=== PATIENT | female | born 1995 | race Caucasian/White ===

== ENCOUNTER 2020-12-23 20:32 | Emergency (ER) | payer MEDICAID ==
[~2020-12-23] VITALS: Ht 157.5 cm; Wt 59.9 kg
[2020-12-23 20:37] VITALS: BP 104/68
--- NOTE | 2020-12-23 21:44 | NUR ---
Pt ambulated to ER bed 4 w/ steady gait.
[2020-12-23] MEDS ORDERED: KETOROLAC 30 MG/ML VIAL IVP ONE (21:50)
[2020-12-23] MEDS ORDERED: NACL 0.9% 1,000 ML IV ONE (21:50)
[2020-12-23] MEDS ORDERED: PANTOPRAZOLE 40 MG INJ VIAL IVP ONE (21:50)
[2020-12-23] MEDS ORDERED: ONDANSETRON 4 MG/2 ML VIAL IVP ONE (21:50)
--- NOTE | 2020-12-23 21:55 | NUR ---
LAB IN ROOM DRAWING BLOOD.
--- NOTE | 2020-12-23 21:58 | NUR ---
LAB AT BEDSIDE
--- NOTE | 2020-12-23 22:00 | NUR ---
ekg performed at bedside. ekg reads sinus rhythm @ 71
--- NOTE | 2020-12-23 22:00 | NUR ---
EMT IN ROOM FOR EKG.
[2020-12-23 22:05] LABS: BASOPHILS # (AUTO) 0.1 K/uL (0.00-0.22); BASOPHILS % (AUTO) 0.6 % (0.0-2.0); EOSINOPHILS # (AUTO) 0.3 K/uL (0-0.4); EOSINOPHILS % (AUTO) 2.8 % (0.0-4.0); HEMATOCRIT 43.1 % (36-48); HEMOGLOBIN 14.6 g/dL (12.0-16.0); LYMPHOCYTES # (AUTO) 2.3 K/uL (2.5-16.5); LYMPHOCYTES % (AUTO) 23.7 % (20.5-51.1); MEAN CORPUSCULAR HEMOGLOBIN 30 pg (27-31); MEAN CORPUSCULAR HGB CONC 34 g/dL (33-37); MEAN CORPUSCULAR VOLUME 88.7 fL (80-94); MONOCYTES # (AUTO) 0.5 K/uL (0.8-1.0); MONOCYTES % (AUTO) 5.1 % (1.7-9.3); NEUTROPHILS # (AUTO) 6.6 K/uL (1.8-7.7); NEUTROPHILS % (AUTO) 67.8 % (42.2-75.2); PLATELET COUNT (AUTO) 377 K/uL (140-450); RED BLOOD CELL COUNT(AUTO) 4.86 MIL/uL (4.20-5.40); RED CELL DISTRIBUTION WIDTH 13.3 % (11.6-13.7); WHITE BLOOD COUNT (AUTO) 9.8 K/uL (4.8-10.8)
[2020-12-23 22:21] LABS: ALBUMIN 4.3 g/dL (3.4-5.0); ANION GAP 13.9 (8-16); ASPARTATE AMINOTRANSFERASE 26 U/L (15-37); CARBON DIOXIDE 26.2 mmol/L (21-32); CHLORIDE 102 mmol/L (98-107); CREATININE 0.9 mg/dL (0.6-1.3); GFR ARICAN-AMERICAN 98 mL/min (>90); GLUCOSE 108 mg/dL (74-106); LIPASE 106 U/L (73-393); POTASSIUM 4.1 mmol/L (3.5-5.1); SODIUM SERUM 138 mmol/L (136-145); TOTAL BILIRUBIN 0.2 mg/dL (0.0-1.0); UREA NITROGEN, BLOOD 13 mg/dL (7-18)
--- NOTE | 2020-12-23 22:44 | NUR ---
IMAGING AT BEDSIDE, TAKING PT TO RADIOLOGY.
--- NOTE | 2020-12-23 23:00 | NUR ---
25 Y/O F BIB SELF FROM HOME FOR LOWER ABD PAIN. PT STATES THAT SHE WAS AT [facility] FOR HYSTEROSALPINGOGRAPHY ON 12/21. PT STATES 6/10 PAIN, RADIATES TO LOWER LEFT BACK. DENIES N/V/D. PT TOOK TYLENOL FOR PAIN. NO PMH. NKA. NO BURNING DURING URINATION, NO BLOOD IN URINE. PT UNABLE TO GIVE URINE AT THIS TIME.
[2020-12-23 23:34] LABS: APPEARANCE,URINE CLEAR (CLEAR); BILIRUBIN,URINE NEGATIVE (NEGATIVE); BLOOD, URINE 2+ (NEGATIVE); COLOR,URINE YELLOW (YELLOW); LEUKOCYTE ESTERASE ,URINE TRACE (NEGATIVE); NITRITE, URINE NEGATIVE (NEGATIVE); UGLUCOSE NEGATIVE (NEGATIVE)
[2020-12-23 23:46] LABS: RBC,URINE 0-5 /HPF (0-5)
[2020-12-23 23:51] LABS: BARBITURATE, URINE NEGATIVE ng/ml (NEG <=200); BENZODIAZEPINE, URINE NEGATIVE ng/mL (NEG <=200); CANNABINOID, URINE NEGATIVE ng/mL (NEG <=50); COCAINE, URINE NEGATIVE ng/mL (NEG <=300); OPIATE, URINE NEGATIVE ng/mL (NEG <=2000); PHENCYCLIDINE SCREEN,URINE NEGATIVE ng/mL (NEG <=25)
--- NOTE | 2020-12-24 00:05 | NUR ---
Patient discharged with v/s stable. Written and verbal after care instructions given and explained. Patient verbalized understanding. Ambulatory with steady gait. All questions addressed prior to discharge. Advised to follow up with PMD.
[2020-12-24 00:06] VITALS: BP 104/68
[2020-12-24] MEDS ORDERED: CEPH500C16 PO (08:22)
== END 2020-12-24 00:05 | disposition home or self-care (01) ==
LOC: MED 20:32
DX: N39.0 Urinary tract infection, site not specified (principal); R42 Dizziness and giddiness; R11.2 Nausea with vomiting, unspecified
CPT/HCPCS: 36415; 74176; 80053; 80305; 81001; 83690; 84702; 85025; 87086; 93005; 96361; 96374; 96375; 99285; C9113; G0482; J1885; J2405

== ENCOUNTER 2021-12-14 02:20 | Observation (INO) | payer MEDICAID ==
[~2021-12-14] VITALS: Ht 152.4 cm; Wt 64.4 kg
[~2021-12-14 02:20] MED LIST: CEPH500C16 PO
[2021-12-14] MEDS ORDERED: PREN-556 PO (03:16)
[2021-12-14] MEDS ORDERED: ACET-2619 PO (04:36)
[2021-12-14] MEDS ORDERED: CIPR10SU OT (04:36)
== END 2021-12-14 03:35 | disposition home or self-care (01) ==
LOC: MFCC 02:20
PROVIDERS: ADMIT Obstetrics & Gynecology; ATTEND Obstetrics & Gynecology
DX: O26.892 Other specified pregnancy related conditions, second trimester (principal); R10.9 Unspecified abdominal pain; H92.02 Otalgia, left ear; L29.9 Pruritus, unspecified; O99.612 Diseases of the digestive system complicating pregnancy, second trimester; K62.89 Other specified diseases of anus and rectum; Z3A.27 27 weeks gestation of pregnancy
CPT/HCPCS: G0378; G0379

== ENCOUNTER 2021-12-14 03:42 | Emergency (ER) | payer MEDICAID ==
[~2021-12-14] VITALS: Ht 149.9 cm; Wt 63.5 kg
[~2021-12-14 03:42] MED LIST changes: +PREN-556 PO
[2021-12-14 03:50] VITALS: BP 121/60
--- NOTE | 2021-12-14 03:54 | NUR ---
Dr. Bermudez examining patient.
[2021-12-14] MEDS ORDERED: CARBAMIDE PEROXIDE 6.5% OT 15 ML BTL OT ONE (04:00)
[2021-12-14] MEDS ORDERED: ACETAMINOPHEN 325 MG TAB PO ONE (04:00)
--- NOTE | 2021-12-14 04:00 | NUR ---
PT TAKEN TO BED 9
[2021-12-14] MEDS ORDERED: CIPR10SU OT (04:36)
[2021-12-14] MEDS ORDERED: ACET-2619 PO (04:36)
[2021-12-14 05:07] VITALS: BP 121/60
--- NOTE | 2021-12-14 05:07 | NUR ---
PATIENT CLEARED FOR DISHCARGE AT THIS TIME WITH NO COMPLAINTS OR CONERNS AT THIS TIME FOLLOWING DIHSCARGE TEACHING. RX SENT TO [facility] AND ADVISED TO FOLLOW UP WITH PCP
== END 2021-12-14 05:07 | disposition home or self-care (01) ==
LOC: MED 03:42
DX: O26.892 Other specified pregnancy related conditions, second trimester (principal); H60.93 Unspecified otitis externa, bilateral; J02.9 Acute pharyngitis, unspecified; Z3A.26 26 weeks gestation of pregnancy; Z79.899 Other long term (current) drug therapy
CPT/HCPCS: 99281; 99283

== ENCOUNTER 2022-03-31 08:50 | Inpatient (IN) | payer OTHER ==
[~2022-03-31] VITALS: Ht 149.9 cm; Wt 70.8 kg
[~2022-03-31 08:50] MED LIST changes: +ACET-2619 PO; -CEPH500C16 PO; +CIPR10SU OT
[2022-03-31] MEDS ORDERED: ONDANSETRON 4 MG/2 ML VIAL IVP PRN (09:40)
[2022-03-31] MEDS ORDERED: OXYTOCIN 20 UNITS in LACTATED RINGERS 1,000 ML IV SCH (09:40)
[2022-03-31] MEDS ORDERED: METHYLERGONOVINE 0.2 MG/ML AMP IM PRN (09:40)
[2022-03-31] MEDS ORDERED: MORPHINE SULFATE 5 MG/ML VIAL IVP PRN (09:40)
[2022-03-31] MEDS: LACTATED RINGERS 500 ML IV SCH ×4 (09:50→21:26)
[2022-03-31 11:11] LABS: APPEARANCE,URINE CLEAR (CLEAR); BILIRUBIN,URINE NEGATIVE (NEGATIVE); BLOOD, URINE NEGATIVE (NEGATIVE); COLOR,URINE YELLOW (YELLOW); LEUKOCYTE ESTERASE ,URINE TRACE (NEGATIVE); NITRITE, URINE NEGATIVE (NEGATIVE); UGLUCOSE NEGATIVE (NEGATIVE)
[2022-03-31 11:15] LABS: BASOPHILS % (AUTO) 0.3 % (0.0-2.0); EOSINOPHILS # (AUTO) 0.1 K/uL (0-0.4); EOSINOPHILS % (AUTO) 0.7 % (0.0-4.0); HEMATOCRIT 33.6 % (36-48); HEMOGLOBIN 10.9 g/dL (12.0-16.0); LYMPHOCYTES # (AUTO) 1.6 K/uL (2.5-16.5); LYMPHOCYTES % (AUTO) 18.1 % (20.5-51.1); MEAN CORPUSCULAR HEMOGLOBIN 25 pg (27-31); MEAN CORPUSCULAR HGB CONC 33 g/dL (33-37); MONOCYTES # (AUTO) 0.5 K/uL (0.8-1.0); MONOCYTES % (AUTO) 5.9 % (1.7-9.3); NEUTROPHILS # (AUTO) 6.6 K/uL (1.8-7.7); PLATELET COUNT (AUTO) 316 K/uL (140-450); WHITE BLOOD COUNT (AUTO) 8.8 K/uL (4.8-10.8)
[2022-03-31 11:25] LABS: ALBUMIN 2.5 g/dL (3.4-5.0); CARBON DIOXIDE 22.6 mmol/L (21-32); CREATININE 0.5 mg/dL (0.6-1.3); POTASSIUM 3.6 mmol/L (3.5-5.1); TOTAL BILIRUBIN 0.2 mg/dL (0.0-1.0)
[2022-03-31 11:50] LABS: PROTHROMBIN TIME 8.8 secs (10.8-13.4)
[2022-03-31] MEDS: MISOPROSTOL 25 MCG TAB VG SCH ×2 (11:54→15:57)
[2022-03-31] MEDS ORDERED: ACETAMINOPHEN 325 MG TAB PO PRN (17:45)
[2022-03-31] MEDS ORDERED: ACETAMINOPHEN 325 MG TAB ONE (17:48)
[2022-03-31] MEDS ORDERED: ROPIVACAINE 0.2%/NS PREMIX 200 ML EPI ONE (20:34)
[2022-03-31] MEDS ORDERED: ROPIVACAINE 0.2%/NS PREMIX 100 ML EPI SCH (20:55)
[2022-04-01] MEDS: LACTATED RINGERS 500 ML IV SCH ×2 (01:15→07:45)
[2022-04-01] MEDS ORDERED: TERBUTALINE 1 MG/ML VIAL SUBQ SCH (01:20)
[2022-04-01] MEDS ORDERED: TERBUTALINE 1 MG/ML VIAL SUBQ ONE (01:24)
[2022-04-01] MEDS ORDERED: ePHEDrine 50 MG/ML VIAL IV SCH (02:40)
--- NOTE | 2022-04-01 09:02 | NUR ---
PATIENT HAS BEEN SCREENED AND CATEGORIZED LOW NUTRITION RISK. PATIENT WILL BE SEEN WITHIN 7 DAYS OF ADMISSION. 04/06/[address]
[2022-04-01] MEDS ORDERED: MORPHINE PRES FREE 10 MG/10 ML AMP IV ONE (11:23)
[2022-04-01] MEDS ORDERED: OXYTOCIN 20 UNITS in LACTATED RINGERS 1,000 ML IV SCH (12:10)
[2022-04-01] MEDS ORDERED: IBUPROFEN 800 MG TAB PO PRN (12:10)
[2022-04-01] MEDS ORDERED: oxyCODONE/APAP 5/325 MG 1 TAB TAB PO PRN (12:10)
[2022-04-01] MEDS ORDERED: METHYLERGONOVINE 0.2 MG/ML AMP IM PRN (12:10)
[2022-04-01] MEDS ORDERED: TEMAZEPAM 15 MG CAP PO PRN (12:10)
[2022-04-01] MEDS ORDERED: MAGNESIUM CITRATE 300 ML BTL PO SCH (12:10)
[2022-04-01] MEDS ORDERED: KETOROLAC 30 MG/ML VIAL IVP PRN ×2 (12:10→12:25)
[2022-04-01] MEDS ORDERED: diphenhydrAMINE 50 MG/ML VIAL IVP PRN (12:25)
[2022-04-01] MEDS ORDERED: DEXTROSE 50% 50 ML SYR IVP STA (12:58)
[2022-04-01] MEDS ORDERED: LACTATED RINGERS 500 ML IV SCH (16:05)
[2022-04-01 17:41] LABS: BASOPHILS % (AUTO) 0.2 % (0.0-2.0); HEMATOCRIT 26.7 % (36-48); HEMOGLOBIN 8.4 g/dL (12.0-16.0); LYMPHOCYTES # (AUTO) 1.4 K/uL (2.5-16.5); LYMPHOCYTES % (AUTO) 9.4 % (20.5-51.1); MEAN CORPUSCULAR HEMOGLOBIN 25 pg (27-31); MEAN CORPUSCULAR HGB CONC 32 g/dL (33-37); MEAN CORPUSCULAR VOLUME 78.3 fL (80-94); MONOCYTES # (AUTO) 0.9 K/uL (0.8-1.0); MONOCYTES % (AUTO) 6.1 % (1.7-9.3); NEUTROPHILS # (AUTO) 12.8 K/uL (1.8-7.7); NEUTROPHILS % (AUTO) 84.3 % (42.2-75.2); PLATELET COUNT (AUTO) 284 K/uL (140-450); RED BLOOD CELL COUNT(AUTO) 3.41 MIL/uL (4.20-5.40); RED CELL DISTRIBUTION WIDTH 18.4 % (11.6-13.7); WHITE BLOOD COUNT (AUTO) 15.2 K/uL (4.8-10.8)
[2022-04-01] MEDS: DOCUSATE SOD/SENNA 50/8.6 MG 1 TAB PO SCH (21:00)
[2022-04-01] MEDS ORDERED: OXYTOCIN 20 UNITS/LR PREMIX 1,000 ML IV ONE (21:09)
[2022-04-01] MEDS: OXYTOCIN 20 UNITS in LACTATED RINGERS 1,000 ML IV SCH (21:18)
[2022-04-02] MEDS ORDERED: OXYTOCIN 20 UNITS/LR PREMIX 1,000 ML IV ONE (03:43)
[2022-04-02] MEDS: OXYTOCIN 20 UNITS in LACTATED RINGERS 1,000 ML IV SCH (05:17)
[2022-04-02 08:07] LABS: BASOPHILS % (AUTO) 0.5 % (0.0-2.0); EOSINOPHILS % (AUTO) 0.5 % (0.0-4.0); LYMPHOCYTES # (AUTO) 1.6 K/uL (2.5-16.5); LYMPHOCYTES % (AUTO) 19.3 % (20.5-51.1); MEAN CORPUSCULAR HEMOGLOBIN 25 pg (27-31); MEAN CORPUSCULAR HGB CONC 33 g/dL (33-37); MEAN CORPUSCULAR VOLUME 77.3 fL (80-94); MONOCYTES # (AUTO) 0.7 K/uL (0.8-1.0); MONOCYTES % (AUTO) 8.2 % (1.7-9.3); NEUTROPHILS % (AUTO) 71.5 % (42.2-75.2); PLATELET COUNT (AUTO) 266 K/uL (140-450); RED BLOOD CELL COUNT(AUTO) 2.58 MIL/uL (4.20-5.40); RED CELL DISTRIBUTION WIDTH 18.1 % (11.6-13.7); WHITE BLOOD COUNT (AUTO) 8.4 K/uL (4.8-10.8)
[2022-04-02 08:18] LABS: HEMATOCRIT 19.9 % (36-48); HEMOGLOBIN 6.5 g/dL (12.0-16.0)
[2022-04-02 10:06] LABS: HEPATITIS B SURFACE ANTIBODY Reactive (.)
[2022-04-02] MEDS: oxyCODONE/APAP 5/325 MG 1 TAB TAB PO PRN (15:25)
[2022-04-02] MEDS ORDERED: FERROUS SULFATE 325 MG TABEC PO SCH (17:00)
[2022-04-02] MEDS: DOCUSATE SOD/SENNA 50/8.6 MG 1 TAB PO SCH (21:04)
[2022-04-02] MEDS: SIMETHICONE 80 MG TAB.CHEW PO PRN (21:05)
[2022-04-03] MEDS: oxyCODONE/APAP 5/325 MG 1 TAB TAB PO PRN ×2 (04:53→13:39)
[2022-04-03] MEDS: SIMETHICONE 80 MG TAB.CHEW PO PRN (04:55)
== END 2022-04-03 16:10 | disposition home or self-care (01) | DRG 540 ==
LOC: MLD 08:50 → OBSVTOIN 04-01 11:42 → MFCC 04-01 14:46
PROVIDERS: ADMIT Obstetrics & Gynecology; ATTEND Obstetrics & Gynecology
PROC: 10D00Z1 Extraction of Products of Conception, Low, Open Approach (ICD-10-PCS; principal; 2022-04-01 11:30)
PROC: 30233N1 Transfusion of Nonautologous Red Blood Cells into Peripheral Vein, Percutaneous Approach (ICD-10-PCS; 2022-04-02)
DX: O62.0 Primary inadequate contractions (principal); O24.429 Gestational diabetes mellitus in childbirth, unspecified control; O90.81 Anemia of the puerperium; Z20.822 Contact with and (suspected) exposure to COVID-19; Z3A.40 40 weeks gestation of pregnancy; Z37.0 Single live birth
CPT/HCPCS: G0378 ×16; 36415; 51702; 80053; 81003; 82948; 85025; 85610; 85730; 86592; 86706; 86762; 86886; 86900; 86901; 86920; J0690; J1200; J1885; J2270; J2405; J2590; J2795; J3105; J7060; J7120; P9016

== ENCOUNTER 2023-12-07 19:00 | Observation (INO) | payer OTHER ==
[~2023-12-07] VITALS: Ht 162.6 cm; Wt 68.0 kg
[2023-12-07 19:37] VITALS: BP 113/55; PULSE 75; RESP 18; TEMP 98.2
== END 2023-12-07 21:05 | disposition home or self-care (01) ==
LOC: MLD 19:00
PROVIDERS: ADMIT Obstetrics & Gynecology; ATTEND Obstetrics & Gynecology
DX: O26.892 Other specified pregnancy related conditions, second trimester (principal); R10.9 Unspecified abdominal pain; Z3A.21 21 weeks gestation of pregnancy
CPT/HCPCS: 81000; G0378; G0379

== ENCOUNTER 2024-05-20 13:04 | Emergency (ER) | payer OTHER ==
[~2024-05-20] VITALS: Ht 157.5 cm; Wt 69.4 kg
[2024-05-20 13:08] VITALS: BP 122/76; RESP 20; TEMP 98.2; O2SAT 99
[2024-05-20] MEDS ORDERED: CEPH500C16 PO (13:40)
== END 2024-05-20 13:59 | disposition home or self-care (01) ==
LOC: MED 13:04
DX: O86.01 Infection of obstetric surgical wound, superficial incisional site (principal); Z98.890 Other specified postprocedural states; Z79.899 Other long term (current) drug therapy
CPT/HCPCS: 99283